=== PATIENT | female | born 1990 | race Caucasian/White ===

== ENCOUNTER 2017-05-26 18:05 | Emergency (ER) | payer OTHER ==
[~2017-05-26] VITALS: Ht 162.6 cm; Wt 71.2 kg
[2017-05-26 18:07] VITALS: TEMP 36.6; Ht 162.6 cm; Wt 71.2 kg
[2017-05-26] MEDS ORDERED: DiphenhydrAMINE HCL 50 MG/ML VIAL IV STA (18:15)
[2017-05-26 18:38] LABS: BASO % 0.4 %; BASO ABS # 0.03 K/uL (0-0.2); COMPLETE YES; EOS % 0.7 %; HEMATOCRIT 38.5 % (37-47); IG% 0.1 %; LYMPH % 37.7 %; LYMPH ABS # 2.81 K/uL (1.2-3.4); MEAN CELL VOLUME 84.1 fL (80-100); MEAN CORPUSCULAR HEMOGLOBIN 29.7 pg (25-34); MEAN CORPUSCULAR HGB CONC 35.3 g/dl (32-36); MEAN PLATELET VOLUME 10.4 fL (7.4-10.4); MONO % 7.2 %; NEUT % 53.9 %; PLATELET COUNT 210 K/uL (130-400); RED BLOOD COUNT 4.58 M/uL (4.2-5.4); WHITE BLOOD COUNT 7.45 K/uL (4.8-10.8)
--- NOTE | 2017-05-26 18:47 | DIAGNOSTIC IMAGING REPORT ---
CHEST ONE VIEW PORTABLE CLINICAL HISTORY: Tachycardia, shortness of breath and rash. COMPARISON STUDY: No previous studies for comparison. FINDINGS: Lung volumes are normal. No pneumothorax or pleural effusion is present. Pulmonary vascularity is normal. Cardiac size is at the upper limits of normal. No consolidation is identified. IMPRESSION: 1. No acute cardiopulmonary findings. 2. Top normal size of the cardiac silhouette. Electronically signed by: Padilla Cooley M.D. 05/26/2017 6:46 PM Dictated Date/Time: 05/26/2017 6:45 PM
[2017-05-26] MEDS ORDERED: MULT-513 PO (18:52)
[2017-05-26] MEDS ORDERED: BIOT1CAP8 PO (18:52)
[2017-05-26 18:53] LABS: PREG INTERNAL NEGATIVE QC NEG CLEAR BACKGROUND; PREG INTERNAL POSITIVE QC POS CONTROL LINE
[2017-05-26 19:09] LABS: ALT/SGPT 26 U/L (12-78); AST/SGOT 21 U/L (15-37); BLOOD UREA NITROGEN 11 mg/dl (7-18); BUN/CREATININE RATIO 13.7 (10-20); CALCIUM 8.9 mg/dl (8.5-10.1); CARBON DIOXIDE 28 mmol/L (21-32); CHLORIDE 105 mmol/L (98-107); GLUCOSE 88 mg/dl (70-99); POTASSIUM 3.5 mmol/L (3.5-5.1); SODIUM 137 mmol/L (136-145)
[2017-05-26 19:20] LABS: ALKALINE PHOSPHATASE 33 U/L (45-117)
[2017-05-26 19:27] LABS: URINE APPEARANCE CLEAR (CLEAR); URINE BILIRUBIN NEG (NEG); URINE COLOR YELLOW; URINE NITRITE NEG (NEG); URINE PH 7.5 (4.5-7.5); URINE SPECIFIC GRAVITY 1.011 (1.000-1.030); UROBILINOGEN NEG (NEG); ZZUR CULT IF INDIC CLEAN CATCH NO
[2017-05-26 19:36] LABS: MANUAL MICROSCOPIC REQUIRED? NO; REVIEW REQ? NO
[2017-05-26 21:33] VITALS: BP 115/69; PULSE 77; O2SAT 97
--- NOTE | 2017-05-26 22:10 | EMERGENCY ROOM VISIT NOTE ---
History Report prepared by Onel: Mary Ellen Hutchins Under the Supervision of: Dr. Maryanne Connors M.D. First contact with patient: 18:10 Chief Complaint: TACHYCARDIA Stated Complaint: SOB, RAPID HEART BEAT History of Present Illness The patient is a 26 year old female who presents to the Emergency Room with complaints of persistent tachycardia that began about an hour ago. The patient states that earlier today, she was pushing a cart of boxes at work, when she began experiencing shortness of breath. She notes her throat felt a little tight and she felt some tingling in her jaw. The patient notes she felt like she was having a panic attack, but became concerned when it lasted longer than usual. She notes a subjective fever. The patient states that ever since she was little, she gets "blotchy" any time she becomes sick. She notes her last normal menstrual period was 5 days ago and denies taking any form of control. The patient denies being a smoker. Source of History: patient Onset: an hour ago Position: other (global) Quality: other (tachycardia) Timing: other Associated Symptoms: + fevers (subjective ), + SOB Review of Systems See HPI for pertinent positives & negatives. A total of 10 systems reviewed and were otherwise negative. Past Medical & Surgical Medical Problems: (1) No Known Active Medical Problems Family History Patient reports no known family medical history. Social History Smoking Status: Never Smoker Smokeless Tobacco Use: No Alcohol Use: none Drug Use: none Housing Status: lives with family Occupation Status: employed Current/Historical Medications Scheduled Biotin (Biotin), 2 CAP PO QAM Multivitamins/Minerals (Mvi With Minerals), 1 TAB PO DAILY Allergies Coded Allergies: No Known Allergies (Unverified Allergy, Unknown, 11/19/02) Uncoded Allergies: NKA (Allergy, Unknown, 11/18/02) Physical Exam Vital Signs Date Time Temp Pulse Resp B/P (MAP) Pulse Ox O2 Delivery O2 Flow Rate FiO2 05/26/17 21:33 77 18 115/69 97 Room Air 05/26/17 20:30 75 16 124/78 99 Room Air 05/26/17 18:39 73 18 132/91 100 Room Air 05/26/17 18:30 100 Room Air 05/26/17 18:24 84 05/26/17 18:07 36.6 86 16 152/91 99 Room Air Physical Exam Vital signs reviewed. General: Well-appearing female, in no significant distress. HEENT: Posterior oropharynx is clear. No scleral icterus, PERRLA, neck supple. Atraumatic. Cardiovascular: Regular rate and rhythm, no extra sounds. Pulmonary: Clear to auscultation bilaterally, normal work of breathing. Abdomen: Soft, nontender, nondistended, positive bowel sounds. Musculoskeletal: Atraumatic, no peripheral edema. Neurologic: Patient awake alert and oriented x 3, full strength in all 4 extremities. Cranial nerves 2 through 12 grossly intact. Skin: Erythematous macular rash to the interior chest, abdomen, and entire back. Warm, dry. Medical Decision & Procedures ER Provider Diagnostic Interpretation: Radiology results as stated below per my review and radiologist interpretation: CHEST ONE VIEW PORTABLE CLINICAL HISTORY: Tachycardia, shortness of breath and rash. COMPARISON STUDY: No previous studies for comparison. FINDINGS: Lung volumes are normal. No pneumothorax or pleural effusion is present. Pulmonary vascularity is normal. Cardiac size is at the upper limits of normal. No consolidation is identified. IMPRESSION: 1. No acute cardiopulmonary findings. 2. Top normal size of the cardiac silhouette. Electronically signed by: Padilla Cooley M.D. 05/26/2017 6:46 PM Laboratory Results 05/26/17 18:25 Red Blood Count 4.58, Mean Corpuscular Volume 84.1, Mean Corpuscular Hemoglobin 29.7, Mean Corpuscular Hemoglobin Concent 35.3, Mean Platelet Volume 10.4, Neutrophils (%) (Auto) 53.9, Lymphocytes (%) (Auto) 37.7, Monocytes (%) (Auto) 7.2, Eosinophils (%) (Auto) 0.7, Basophils (%) (Auto) 0.4, Neutrophils # (Auto) 4.01, Lymphocytes # (Auto) 2.81, Monocytes # (Auto) 0.54, Eosinophils # (Auto) 0.05, Basophils # (Auto) 0.03 05/26/17 18:25 Test 05/26/17 18:25 05/26/17 18:31 05/26/17 19:05 05/26/17 20:29 White Blood Count 7.45 K/uL (4.8-10.8) Red Blood Count 4.58 M/uL (4.2-5.4) Hemoglobin 13.6 g/dL (12.0-16.0) Hematocrit 38.5 % (37-47) Mean Corpuscular Volume 84.1 fL (80-100) Mean Corpuscular Hemoglobin 29.7 pg (25-34) Mean Corpuscular Hemoglobin Concent 35.3 g/dl (32-36) Platelet Count 210 K/uL (130-400) Mean Platelet Volume 10.4 fL (7.4-10.4) Neutrophils (%) (Auto) 53.9 % Lymphocytes (%) (Auto) 37.7 % Monocytes (%) (Auto) 7.2 % Eosinophils (%) (Auto) 0.7 % Basophils (%) (Auto) 0.4 % Neutrophils # (Auto) 4.01 K/uL (1.4-6.5) Lymphocytes # (Auto) 2.81 K/uL (1.2-3.4) Monocytes # (Auto) 0.54 K/uL (0.11-0.59) Eosinophils # (Auto) 0.05 K/uL (0-0.5) Basophils # (Auto) 0.03 K/uL (0-0.2) RDW Standard Deviation 36.0 fL (36.4-46.3) RDW Coefficient of Variation 11.8 % (11.5-14.5) Immature Granulocyte % (Auto) 0.1 % Immature Granulocyte # (Auto) 0.01 K/uL (0.00-0.02) Anion Gap 4.0 mmol/L (3-11) Est Creatinine Clear Calc Drug Dose 101.3 ml/min Estimated GFR () 116.3 Estimated GFR (Non- 100.3 BUN/Creatinine Ratio 13.7 (10-20) Calcium Level 8.9 mg/dl (8.5-10.1) Magnesium Level 2.0 mg/dl (1.8-2.4) Total Bilirubin 0.2 mg/dl (0.2-1) Direct Bilirubin < 0.1 mg/dl (0-0.2) Aspartate Amino Transf (AST/SGOT) 21 U/L (15-37) Alanine Aminotransferase (ALT/SGPT) 26 U/L (12-78) Alkaline Phosphatase 33 U/L (45-117) Total Protein 7.7 gm/dl (6.4-8.2) Albumin 4.0 gm/dl (3.4-5.0) Thyroid Stimulating Hormone (TSH) 4.550 uIu/ml (0.300-4.500) Free Thyroxine 0.96 ng/dl (0.80-1.60) Human Chorionic Gonadotropin, Qual NEG (NEG) Bedside D-Dimer 117 ng/mlFEU (0-450) Urine Color YELLOW Urine Appearance CLEAR (CLEAR) Urine pH 7.5 (4.5-7.5) Urine Specific [place] 1.011 (1.000-1.030) Urine Protein NEG (NEG) Urine Glucose (UA) NEG (NEG) Urine Ketones NEG (NEG) Urine Occult Blood NEG (NEG) Urine Nitrite NEG (NEG) Urine Bilirubin NEG (NEG) Urine Urobilinogen NEG (NEG) Urine Leukocyte Esterase NEG (NEG) Troponin I < 0.015 ng/ml (0-0.045) Laboratory results per my review. Medications Administered Medications (Trade) Dose Ordered Sig/Renee Route Start Time Stop Time Status Last Admin Dose Admin Diphenhydramine HCl (Benadryl Inj) 25 mg NOW STAT IV 05/26/17 18:15 05/26/17 18:20 DC 05/26/17 18:26 25 MG ECG Indication: tachycardia Rate (beats per minute): 96 Rhythm: normal sinus Findings: nonspecific-ST abn Change: Second EKG performed showed: rate of 78, non-specific ST change, interior and lateral lead, no significant change. ED Course 1820: Past medical records reviewed. The patient was evaluated in room C8. A complete history and physical examination was performed. 1814: Ordered Benadryl Inj 25m IV. 1943: I evaluated the patient's EKG and based on the results I decided to order another EKG to further evaluate the findings. 2001: Upon reevaluation, the patient appeared to have improvement of her symptoms. I discussed findings with her. She verbalized agreement of the treatment plan. The patient was discharged home. Medical Decision Differential diagnosis: Etiologies such as allergic reaction, anaphylaxis, urticaria, Carmen-Yasir syndrome, toxic epidermal necrolysis, erythema multiforme, cellulitis, as well as others were entertained. This patient was evaluated and appeared to be in no significant distress. IV access was obtained and laboratory work was drawn. The patient was placed on the logistics manager. She is found to be in a normal sinus rhythm. EKG reveals a nonspecific ST change in the anterior lateral leads. She was given 25 mg of IV Benadryl with improvement in her symptoms. 2 troponins are negative. D- dimer is negative. Chest x-ray is clear. Patient was reevaluated and continued to do well. She was advised to continue Benadryl 25-50 mg every 6 hours as needed for allergic symptoms as needed. She will monitor for signs and symptoms of viral illness. Patient was encouraged to establish with a PCP as soon as possible. She will return to the ER for worsening of symptoms or any medical concerns. Medication Reconcilliation Current Medication List: was personally reviewed by me Blood Pressure Screening Patient's blood pressure: Normal blood pressure Blood pressure disposition: Did not require urgent referral Impression Primary Impression: Palpitations Additional Impression: Rash Scribe Attestation The scribe's documentation has been prepared under my direction and personally reviewed by me in its entirety. I confirm that the note above accurately reflects all work, treatment, procedures, and medical decision making performed by me. Departure Information Referrals No Doctor, Assigned (PCP) Forms HOME CARE DOCUMENTATION FORM, IMPORTANT VISIT INFORMATION, WORK / SCHOOL INSTRUCTIONS Patient Instructions My [facility] Additional Instructions Diagnosis: Palpitations, rash Benadryl 25-50 mg every 6 hours as needed for allergic symptoms. Drink plenty of clear fluids. Avoid caffeine, nicotine and alcohol. Please call to establish with a primary care physician as soon as possible. Problem Qualifiers
== END 2017-05-26 21:37 | disposition home or self-care (01) ==
LOC: C.EDB 18:07 → C.EDC 21:37
DX: R00.2 Palpitations (principal); R21 Rash and other nonspecific skin eruption